=== PATIENT | female | born 1950 | race Caucasian/White ===

== ENCOUNTER 2022-06-01 14:26 | Outpatient (CLI) | payer MEDICARE ==
--- NOTE | 2022-06-01 15:24 | XRAY Report ---
PROCEDURE: Lumbar Spine 2 View INDICATIONS: BACK PAIN TECHNIQUE: 3 views of the lumbar spine were acquired. COMPARISON: CT lumbar spine 04/05/2022 FINDINGS: Bones: 5 [id number] vertebrae are present. Compression deformities are present at T12, L2 and L 3, with T12 and L3 appearing new compared to prior exam. Compression deformities measure approximatel y 79% and 30% respectively. There is 3 mm anterolisthesis of L4 on L5. Severe disc and foraminal narr owing is noted most probably at L5-S1. Soft tissues: Overlying bowel gas pattern is normal. No suspicious soft tissue calcifications. IMPRESSION: New compression deformities at T12 and L3 as above. Reviewed by: Tesha Rivers MD on 06/01/2022 3:22 PM PDT Approved by: Tesha Rivers MD on 06/01/2022 3:22 PM PDT Station ID: [id number]
== END 2022-06-01 14:27 | disposition home or self-care (01) ==
LOC: DI 14:26
PROVIDERS: ATTEND Student in an Organized Health Care Education/Training Program
DX: S32.039A Unspecified fracture of third lumbar vertebra, initial encounter for closed fracture (principal); S22.089A Unspecified fracture of T11-T12 vertebra, initial encounter for closed fracture

== ENCOUNTER 2022-07-18 09:20 | Outpatient (CLI) | payer MEDICARE ==
--- NOTE | 2022-07-18 17:02 | MRI Report ---
PROCEDURE: LUMBAR SPINE WO INDICATIONS: COMPRESSION FRACTURE L2 TECHNIQUE: Noncontrast sagittal T1 spin echo and T2 fast echo, sagittal STIR, axial T1 and T2 fast spin echo thr ough the lumbar spine. In cases with scoliosis, additional coronal T2 fast spin echo may be performe d. COMPARISON: 06/01/2022 FINDINGS: Image quality: Excellent. Alignment and Curvature: As below Bone Marrow: Wedge-shaped compression fractures are present at T12, L2, L3. No marrow edema present t hroughout the exam. Small retropulsed fracture fragment noted at T12. There is no signal marrow repla cement throughout the T12 vertebral body. Mild marrow edema along the superior endplate of L2 and L3. Small retropulsed fracture fragments at L2 and L3 noted as well. Minimal degenerative anterior spina l listhesis at L4-5 Spinal Cord: Conus medullaris terminates at the L1 level. Visualized cord demonstrates normal signa l and size. Paraspinous Soft Tissues: No paravertebral masses. T12-L1: Retropulsed fracture fragment at T12 noted. Mild to moderate central stenosis at the T12 lev el. T12-L1 disc space is relatively preserved. No foraminal stenosis L1-L2: Retropulsed fracture fragment at L2 results in mild central stenosis. Disc spaces preserved . No foraminal stenosis L2-L3: Small retropulsed fracture fragment results in mild central stenosis. No foraminal stenosis L3-L4: Disc spaces maintained. No central or foraminal stenosis L4-L5: Disc space narrowing. Broad-based posterior disc bulge, hypertrophic facet joints and ligame ntum flavum laxity result in moderate to severe central stenosis. Moderate bilateral foraminal stenos is. L5-S1: Disc spaces maintained. No central or foraminal stenosis IMPRESSION: 1. T12 with edema and low signal marrow replacement. Consider follow-up CT. Correlate with any prior intervention. 2. T12, L2, L3 and L4-5 anterior spinal listhesis, stable from prior. 3. Multilevel degenerative disc disease and arthropathy results in varying degrees of central and for aminal stenosis Reviewed by: Santana De Santiago MD on 07/18/2022 4:01 PM AKST Approved by: Santana De Santiago MD on 07/18/2022 4:01 PM [place] Station ID: [id number]
== END 2022-07-18 09:21 | disposition home or self-care (01) ==
LOC: DI 09:20
PROVIDERS: ATTEND Student in an Organized Health Care Education/Training Program
DX: M43.14 Spondylolisthesis, thoracic region (principal); M43.16 Spondylolisthesis, lumbar region; M48.04 Spinal stenosis, thoracic region; M48.061 Spinal stenosis, lumbar region without neurogenic claudication; M47.816 Spondylosis without myelopathy or radiculopathy, lumbar region

== ENCOUNTER 2022-09-27 14:11 | Outpatient (CLI) | payer MEDICARE ==
--- NOTE | 2022-09-27 20:54 | DEXA Report ---
PROCEDURE: Dexa Spine and/or Hip INDICATIONS: POST MENOPAUSAL TECHNIQUE: Dual energy x-ray absorptiometry (DXA) was performed on a [employer] [facility]. Regions measur ed are the AP Spine, femoral neck, and if needed forearm. COMPARISON: Lumbar spine radiographs 06/01/2022. FINDINGS: Lumbar Spine: L1-L3. Multiple compression fractures seen on recent x-ray. This limits accuracy. Bone Mineral Density 0.997 g/cm/cm, T score -1.4, osteopenia Left Femoral Neck: Bone Mineral Density 0.754 g/cm/cm, T score -2.0, osteopenia Left Hip: Bone Mineral Density 0.727 g/cm/cm, T score -2.2, osteopenia (T score greater or equal to -1.0: NORMAL) (T score from -1.1 to -2.4: OSTEOPENIA) (T score less than or equal to -2.5 to: OSTEOPOROSIS) Impression: Osteopenia Patients with diagnosis of osteoporosis or osteopenia should have regular bone mineral density assess ment. For those eligible for Medicare, routine testing is allowed once every 2 years. Testing frequ ency can be increased for patients who have rapidly progressing disease or for those who are receivin g medical therapy to restore bone mass. Reviewed by: Armani Tran MD on 09/27/2022 8:53 PM PST Approved by: Armani Tran MD on 09/27/2022 8:53 PM PST Station ID: [id number]
== END 2022-09-27 14:12 | disposition home or self-care (01) ==
LOC: DI 14:11
PROVIDERS: ATTEND Student in an Organized Health Care Education/Training Program
DX: M85.89 Other specified disorders of bone density and structure, multiple sites (principal)

== ENCOUNTER 2023-10-10 08:42 | Outpatient (CLI) | payer MEDICARE ==
[2023-10-10 12:35] LABS: BASOPHILS # (AUTO) 0.1 10^3/uL (0.0-0.1); BASOPHILS % (AUTO) 1.2 %; EOSINOPHILS # (AUTO) 0.5 10^3/uL (0.0-0.7); EOSINOPHILS % (AUTO) 5.9 %; HCT - HEMATOCRIT 39.4 % (37.0-47.0); HGB - HEMOGLOBIN 12.5 g/dL (12.0-16.0); LYMPHOCYTES % (AUTO) 36.9 %; MEAN CORPUSCULAR HGB CONC 31.7 g/dL (32.0-36.0); MEAN CORPUSCULAR VOLUME 94.7 fL (81.0-99.0); MEAN PLATELET VOLUME 9.1 fL (7.9-10.8); MONOCYTES # (AUTO) 0.9 10^3/uL (0.0-1.0); MONOCYTES % (AUTO) 10.5 %; NEUTROPHILS # (AUTO) 3.7 10^3/uL (1.5-6.6); NEUTROPHILS % (AUTO) 45.4 %; PLT - PLATELET COUNT 311 10^3/uL (130-450); RED BLOOD COUNT 4.16 10^6/uL (4.20-5.40); WHITE BLOOD COUNT 8.1 x10^3/uL (4.8-10.8)
[2023-10-10 12:58] LABS: ALBUMIN 4.2 g/dL (3.2-5.5); ALBUMIN/GLOBULIN RATIO 1.6 (1.0-2.2); ALKALINE PHOSPHATASE 69 IU/L (42-121); ALT ALANINE AMINOTRANSFERASE 18 IU/L (10-60); AST ASPARTATE AMINOTRANSFERASE 22 IU/L (10-42); BILIRUBIN,TOTAL 0.5 mg/dL (0.2-1.0); BUN - BLOOD UREA NITROGEN 19 mg/dL (6-20); CALCIUM 10.2 mg/dL (8.5-10.3); CARBON DIOXIDE - CO2 28 mmol/L (21-32); CHLORIDE 104 mmol/L (101-111); CHOL/HDL RATIO 4.3 (<4.4); CHOLESTEROL 205 mg/dL; GFR - MDRD 55 (>89); GLUCOSE 101 mg/dL (74-104); HDL CHOLESTEROL 48 mg/dL; LDL CHOLESTEROL,CALCULATED 139 mg/dL; LDL/HDL RATIO 2.9 (<4.4); POTASSIUM 4.4 mmol/L (3.5-4.5); SODIUM 139 mmol/L (135-145); TOTAL PROTEIN 6.8 g/dL (6.4-8.9); TRIGLYCERIDES 89 mg/dL (48-352); VLDL CHOLESTEROL 18 mg/dL
[2023-10-10 13:02] LABS: THYROID STIMULATING HORMONE 1.46 uIU/mL (0.34-5.60)
== END 2023-10-10 08:43 | disposition home or self-care (01) ==
LOC: LAB.N 08:42
PROVIDERS: ATTEND Nurse Practitioner
DX: I10 Essential (primary) hypertension (principal); Z13.220 Encounter for screening for lipoid disorders; E66.9 Obesity, unspecified
CPT/HCPCS: 36415; 80053; 80061; 83721; 84443; 85025